=== PATIENT | female | born 1995 | race Caucasian/White ===

== ENCOUNTER 2022-07-09 15:34 | Outpatient (CLI) | payer OTHER, SELFPAY ==
--- NOTE | ~2022-07-09 | US_ITS ---
EXAMINATION: US thyroid DATE: 07/09/2022 16:00 INDICATION: Nontoxic goiter. TECHNIQUE: Multiple ultrasound images of the thyroid were obtained. COMPARISON: None. FINDINGS: The right thyroid lobe measures 5.4 x 2.0 x 1.7 cm. The left thyroid lobe measures 5.1 x 1.9 x 1.5 c m. In the right thyroid lobe, there is a 6 mm solid, hypoechoic, wider than tall nodule with smooth margin without echogenic foci (TI-RADS TR4). In the left thyroid lobe, there is a 5 mm cystic nodule (TR1). IMPRESSION: 1. Small thyroid nodules, likely not clinically significant. No follow-up is needed. Reviewed, dictated and finalized at location A. IMPRESSION: 1. Small thyroid nodules, likely not clinically significant. No follow-up is ne eded.
--- NOTE | ~2022-07-09 | US_ITS ---
EXAMINATION: US transvaginal DATE: 07/09/2022 17:00 INDICATION: Irregular periods. TECHNIQUE: Multiple transvaginal sonographic images of the pelvis were obtained. COMPARISON: None. FINDINGS: The uterus measures 6.6 x 3.6 x 4.1 cm. There is no free fluid in the pelvis. The endometrial complex measures 5 mm in thickness. The right ovary measures 4.8 x 2.6 x 2.7 cm. The left ovary measures 2.4 x 2.0 x 3.0 cm. There is normal vascular flow in the ovaries. IMPRESSION: 1. Normal pelvis. Reviewed, dictated and finalized at location A. IMPRESSION: 1. Normal pelvis.
== END 2022-07-09 15:35 | disposition home or self-care (01) ==
PROVIDERS: PCP Nurse Practitioner Family; Visit Provider Internal Medicine Endocrinology, Diabetes & Metabolism
DX: N92.6 Irregular menstruation, unspecified (principal); E04.9 Nontoxic goiter, unspecified
CPT/HCPCS: 76536; 76830

== ENCOUNTER 2023-09-28 12:57 | Outpatient (CLI) | payer OTHER, SELFPAY ==
--- NOTE | ~2023-09-28 | US_ITS ---
US thyroid INDICATION: Multinodular goiter TECHNIQUE: Real-time sonographic images of the thyroid gland were obtained. COMPARISON: Thyroid ultrasound dated 07/09/2022 FINDINGS: The right thyroid lobe measures 5.2 x 1.7 x 2.3 cm. The left thyroid lobe measures 5.7 x 1 .3 x 2 cm. There are multiple complicated cysts of the thyroid gland, largest on the right measuring 8 mm and on the left measuring 7 mm, likely benign. No suspicious solid masses are identified. Normal vascular f low is present. IMPRESSION: 1. 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 Reviewed, dictated and finalized at location B. IMPRESSION: 1. Multiple benign-appearing bilateral thyroid cysts, likely colloid cysts bridget suring up to 8 mm in the right lobe, likely of no clinical significance.
== END 2023-09-28 12:58 | disposition home or self-care (01) ==
PROVIDERS: PCP Physician Assistant; Visit Provider Physician Assistant
DX: E04.2 Nontoxic multinodular goiter (principal)
CPT/HCPCS: 76536